=== PATIENT | female | born 1985 | race Caucasian/White ===

== ENCOUNTER 2019-08-23 10:02 | Outpatient (CLI) | payer OTHER, SELFPAY ==
--- NOTE | ~2019-08-23 | US_ITS ---
EXAMINATION: US OB /maternal detail DATE: 08/23/2019 11:55 INDICATION: survey TECHNIQUE: Multiple obstetric sonographic images performed. FINDINGS: No prior studies for comparison. There is a single living fetus in vertex presentation. The placenta is anterior without placenta pre via. Placenta is 2.4 cm from the cervix. Amniotic fluid volume is normal. cardiac activity and movement is noted with a heart rate of 138 beats per minute. The following anatomy was identified as normal: 4 chamber heart 3 vessel cord cord insertion kidneys urinary bladder stomach diaphragm ventricles cisterna magna cerebellum Spine not well visualized on axial images due to lie. The following biometric data were obtaine d: BPD: 43mm corresponds to gestational age 18 weeks 6 days. Head circumference: 172 mm corresponds to gestational age 19 weeks 6 days. Abdominal circumference: 141 mm corresponds to gestational age 19 weeks 3 days. Femur length: 29 mm corresponds to gestational age 19 weeks 0 days. Head circumference to abdominal circumference ratio: 1.22 (normal range for expected gestational age is 1.09-1.26). Estimated weight: 284 grams +/- 43 grams using Hadlock method. IMPRESSION: 1: Single living intrauterine with an estimated gestational age of 19weeks 2days by current ultrasound measurements, with an EDC of 01/15/2020 in vertex presentation. 2: survey limited for evaluation of the spine due to lie. The remainder of the survey is unremarkable. 3: Low-lying anterior placenta measuring 2.4 cm to the cervix. Reviewed, dictated and finalized at location A. IMPRESSION: 1: Single living intrauterine with an estimated gestational age of 19 weeks 2days by current ultrasound measurements, with an EDC of 01/15/2020 in gunner ute presentation. 2: survey limited for evaluation of the spine due to lie. The carlton rosita of the survey is unremarkable. 3: Low-lying anterior placenta measuring 2.4 cm to the cervix.
== END 2019-08-23 10:03 | disposition home or self-care (01) ==
PROVIDERS: Visit Provider Obstetrics & Gynecology
DX: Z34.90 Encounter for supervision of normal pregnancy, unspecified, unspecified trimester (principal); Z3A.19 19 weeks gestation of pregnancy; O44.42 Low lying placenta NOS or without hemorrhage, second trimester
CPT/HCPCS: 76805

== ENCOUNTER 2019-09-07 07:58 | Outpatient (CLI) | payer OTHER, SELFPAY ==
--- NOTE | ~2019-09-07 | US_ITS ---
EXAMINATION: US OB limited DATE: 09/07/2019 09:03 INDICATION: Nonvisualized anatomy on prior anatomic survey. Low lying placenta. TECHNIQUE: Real-time ultrasound of the pelvis was performed. COMPARISON: Ultrasound 08/23/2019 FINDINGS: There is a single fetus in breech presentation. The placenta is anterior, 3.5 cm from the cervix. Fe kelton heart rate is 154 beats per minute (bpm). The visualized portions of the spine are normal. The amniotic fluid volume is subjectively normal. IMPRESSION: 1. Single living fetus in breech presentation. 2. Normal placenta. 3. Normal visualized portions of the spine. Reviewed, dictated and finalized at location A.
== END 2019-09-07 07:59 | disposition home or self-care (01) ==
LOC: ANHIMG 08:00
PROVIDERS: Visit Provider Obstetrics & Gynecology
DX: Z36.2 Encounter for other antenatal screening follow-up (principal); O44.42 Low lying placenta NOS or without hemorrhage, second trimester
CPT/HCPCS: 76815

== ENCOUNTER → 2019-12-04 08:13 | Outpatient (CLI) | payer OTHER, SELFPAY ==
--- NOTE | ~2019-12-04 | US_ITS ---
EXAMINATION: US right upper quadrant DATE: 12/04/2019 08:38 INDICATION: Right upper quadrant abdominal pain. TECHNIQUE: Multiple grayscale and Doppler ultrasound images of the abdomen were obtained. COMPARISON: None FINDINGS: Abdominal aorta is normal in caliber. Inferior vena cava is normal. The visualized portions of the head and body of the pancreas are normal. The liver is normal without focal lesion. No liver surface nodularity. There is normal flow in main portal vein. The gallbladder is normal in size and c ontains gallstones. No gallbladder wall thickening or sonographic Jiménez sign. The common duct is nor mal and measures 3 mm. Right kidney is normal in size. IMPRESSION: 1. Cholelithiasis. No evidence of acute cholecystitis. Reviewed, dictated and finalized at location B.
== END ==
PROVIDERS: Visit Provider Obstetrics & Gynecology Gynecology
DX: K80.20 Calculus of gallbladder without cholecystitis without obstruction (principal)
CPT/HCPCS: 76705

== ENCOUNTER 2020-01-09 08:36 | Outpatient (CLI) | payer OTHER, SELFPAY ==
[2020-01-09 08:51] LABS: Hematocrit 35.3 % (37.0-47.0); Hemoglobin 12.1 g/dL (12.0-15.0); Mean Corpuscular HGB Conc 34.3 g/dl (32-36); Mean Corpuscular Hemoglobin 28.9 pg (26-34); Mean Corpuscular Volume 84.4 fl (80-100); Mean Platelet Volume 11.7 fl (7.4-10.4); Platelet Count Result 237 k/mm3 (150-375); Red Blood Count 4.18 M/mm3 (4.2-5.4); Red Cell Distribution Width 13.3 % (11.5-14.5); White Blood Count 9.4 K/mm3 (4.5-10.0)
[2020-01-10 10:52] LABS: Rapid Plasma Reagin Non-Reactive (NonReactive)
== END 2020-01-09 08:37 | disposition home or self-care (01) ==
LOC: ANHLAB 08:37
PROVIDERS: Visit Provider Obstetrics & Gynecology
DX: Z34.93 Encounter for supervision of normal pregnancy, unspecified, third trimester (principal); Z3A.00 Weeks of gestation of pregnancy not specified
CPT/HCPCS: 36415; 85027; 86592; 86850; 86900; 86901

== ENCOUNTER 2020-01-10 05:31 | Inpatient (IN) | payer OTHER, SELFPAY ==
[2020-01-10] VITALS (55 sets, daily range): BP systolic 88–130; BP diastolic 45–82; PULSE 57–96; RESP 14–18; TEMP 36.3–36.7; O2SAT 96–100; BMI 37.8
--- NOTE | 2020-01-10 05:31 | LDADM ---
This patient, Lee Ann Hines, was admitted to Labor/Delivery/Recovery 120 on 01/10/20 at 05:31. Plans for labor, pain management and were discussed with patient. Patient/family oriented to hospital policies and general routines including ID bracelet, bed and alarms, visiting hours, pain management, procedures, bathroom and other care routines, personal items, smoking policy, room service/diet and guest tray routines, infant security routines, and visiting hours. Patient/Family are encouraged to report perceived risks to care and to ask questions if they do not understand what they are told or what they should do. See OBIX for further documentation.
[2020-01-10] MEDS: LACTATED RINGERS 1,000 ML 125 ML IV CONT ×2 (05:59→06:43)
--- NOTE | 2020-01-10 06:44 | WPDANESEPPF ---
Anes - Initial Pre Proc Eval Procedure: Operation Date: 01/10/20 07:30 Proposed Procedures p Repeat Section - Aj Cornell MD Date/Time: 01/10/20 06:44 Surgeon: Aj Cornell MD Pre Op Diagnosis: C/S Patient Data Age: 34 Gender: F Height: 1.63 m Weight: 100 kg Last Vital Signs Temp 36.7 C 01/10/20 06:35 Pulse 80 01/10/20 06:31 BP 118/76 01/10/20 06:31 Allergies Allergy/AdvReac Type Severity Reaction Status Date / Time No Known Allergies Allergy Verified 12/18/19 12:30 Home Medications Medication Instructions Recorded Confirmed Type PNV cmb#95-ferrous fumarate-FA 1 tablet PO DAILY 12/18/19 12/18/19 History [] levothyroxine 150 mcg PO DAILY 12/18/19 12/18/19 History Patient hx anesthesia problems: none Family hx anesthesia problems: none PMFSH Past Medical History Medical History (Updated 01/08/20 @ 16:06 by Ronald Godinez DO) History of Graves' disease Surgical History Surgical History (Updated 01/08/20 @ 16:06 by Ronald Godinez DO) History of received blood patch s/p c section for PDPH History of thyroidectomy Social History Social History Smoking status: Never smoker Second hand tobacco smoke exposure: No Substance use: never Gender identity (if verbalized by the patient): Female Spiritual care concerns: No Anes - Eval Final PreProcedure Day of Procedure 01/10/20 06:44 Patient weight: obese Heart: regular rate and rhythm Lungs: clear to auscultation and normal air movement Airway: Mallampati scale class II Neurological: alert and oriented Last oral intake: >/= 8 hours ASA classification: III Emergent: no Anesthetic plan: proceed Anesthesia type and monitoring: regional spinal and standard monitoring Informed Consent: The patient's anesthetic plan and its attendant risks and benefits were discussed with the patient/family/POA. Questions were solicited and answers provided to the satisfaction of the patient/family/POA.
--- NOTE | 2020-01-10 07:08 | PM.IMHP ---
H&P: HPI History of Present Illness Date/Time: 01/10/20 07:08 Chief complaint: C/S Narrative: Lee Ann Hines is a 34 year old female @ 39 weeks presgnancy complicated by gallstones, MO, hypothyroid and prior csection. Patient reports movement no leakage of fluid. Patient desires repeat csection. PENDING SALE TO [facility] Past Medical History Medical History History of Graves' disease Surgical History Surgical History (Updated 01/10/20 @ 07:13 by Aj Cornell MD) H/O: History of received blood patch s/p c section for PDPH History of thyroidectomy Family History Family History Other No pertinent family history Social History Social History Smoking status: Never smoker Second hand tobacco smoke exposure: No Substance use: never Gender identity (if verbalized by the patient): Female Spiritual care concerns: No Meds Home Medications and Allergies Home Medications Medication Instructions Recorded Confirmed Type PNV cmb#95-ferrous fumarate-FA 1 tablet PO DAILY 12/18/19 12/18/19 History [] levothyroxine 150 mcg PO DAILY 12/18/19 12/18/19 History Allergies Allergy/AdvReac Type Severity Reaction Status Date / Time No Known Allergies Allergy Verified 12/18/19 12:30 Vital Signs Vital Signs - 24 hr 01/10/20 06:20 01/10/20 06:31 01/10/20 06:35 Temperature 36.7 C Pulse Rate 77 80 Blood Pressure 103/63 118/76 Exam Const: General: no acute distress Resp: Auscultation: clear to auscultation bilaterally Cardio: Rate: regular rate GI: GI Palp: Yes Soft to palpation Other: Gravid fundal height 41 cm Assessment and Plan Assessment and plan (1) Gallstones: Code(s): K80.20 - Calculus of gallbladder without cholecystitis without obstruction Status: Acute Assessment and Plan: follow up with GI/surgeon (2) H/O: : Code(s): Z98.891 - History of uterine scar from previous surgery Status: Acute Assessment and Plan: Scheduled for a repeat csection. Risk and benefits reviewed in detail including bleeding, infection, trauma, and anesthesia. Patient agrees to proceed with repeat csection.
[2020-01-10] MEDS: ceFAZolin 2 GM/D5W 50 ML 2 GM/50 ML BAG IVPB (07:17)
[2020-01-10 07:41] LABS: Rubella IgG Antibody 25.7 IU/ML
[2020-01-10] MEDS: OXYTOCIN 30 UNITS/NS 500 ML 30 UNITS/500 ML BAG 125 UNITS IV CONT (08:55)
[2020-01-10] MEDS: KETOROLAC 30 MG/ML VIAL (*BKC) IV PUSH ×2 (09:17→23:30)
--- NOTE | 2020-01-10 10:20 | PC.NURSE ---
Patient transferred to post room #291 per stretcher from labor and delivery. Support person present. Oriented to unit, room, information board, rooming in, admission packet and security measures. Patient verbalizes understanding.
[2020-01-10] MEDS: ONDANSETRON INJ 4 MG/2 ML VIAL IV PUSH ×2 (11:19→18:35)
[2020-01-10] MEDS: DEXTROSE 5%/0.45% SOD CHL 1,000 ML 125 ML IV CONT (13:23)
[2020-01-10] MEDS: METOCLOPRAMIDE HCL INJ 10 MG/2 ML VIAL (13:25)
[2020-01-10] MEDS: METOCLOPRAMIDE HCL INJ 10 MG/2 ML VIAL IV PUSH (23:30)
[2020-01-11 04:15] VITALS: BP 91/59; PULSE 62; RESP 16; TEMP 36.7
[2020-01-11 06:08] LABS: Basophils Percent Auto 0.3 % (0.2-1.2); Eosinophils Absolute Auto 0.1 K/mm3 (0-0.3); Eosinophils Percent Auto 0.6 % (0-4.4); Hematocrit 32.7 % (37.0-47.0); Hemoglobin 10.7 g/dL (12.0-15.0); Immature Granulocyte Absolute 0.06 K/mm3 (0.00-0.031); Immature Granulocyte Percent A 0.5 % (0-0.5); Lymphocytes Absolute Auto 1.86 K/mm3 (0.9-3.2); Lymphocytes Percent Auto 15.9 % (18.3-44.2); Mean Corpuscular HGB Conc 32.7 g/dl (32-36); Mean Corpuscular Volume 88.6 fl (80-100); Mean Platelet Volume 12.4 fl (7.4-10.4); Monocytes Absolute Auto 0.8 K/mm3 (0.1-0.6); Neutrophils Absolute Auto 8.8 K/mm3 (1.3-6.7); Neutrophils Percent Auto 75.7 % (45.5-73.1); Platelet Count Result 214 k/mm3 (150-375); Red Blood Count 3.69 M/mm3 (4.2-5.4); Red Cell Distribution Width 13.7 % (11.5-14.5); White Blood Count 11.7 K/mm3 (4.5-10.0)
[2020-01-11 07:25] VITALS: BP 103/60; PULSE 76; RESP 18; TEMP 37.4; O2SAT 97
[2020-01-11] MEDS: HYDROcodone/acetaminophen (*CRX) 5-325 MG TABLET 1 TAB PO ×4 (09:11→23:00)
[2020-01-11] MEDS: IBUPROFEN 600 MG TABLET PO ×3 (09:12→23:00)
[2020-01-11] MEDS: DOCUSATE SODIUM 100 MG CAPSULE PO ×2 (09:12→16:49)
--- NOTE | 2020-01-11 09:41 | PM.PROC ---
Procedure Note - Detailed Date of procedure: 01/11/20 Pre-op diagnosis: C/S Post-op diagnosis: same Procedure performed: repeat c section Description of procedure: The patient was taken to the operating room with IV running. She was prepared and draped in a normal sterile fashion after a spinal anesthesia was performed. The patient was taped placed in the leftward tilt. A Pfannenstiel skin incision was made with scalpel carried down to the underlying layer of fascia. This fascial incision was excised in the midline and extended bilaterally with De Jesus scissors. The anterior portion of the fascia was grasped with Ailyn clamps elevated and dissected off the rectus muscles. The inferior aspect of the incision was grasped with clamps elevated dissected off the rectus muscles. The rectus muscles were in the midline peritoneum was entered bluntly. And the lower uterine segment was noted a bladder blade was inserted sickle uterine peritoneum was grasped with peons and sharply Metzenbaum scissors bladder blade was created. A transverse incision was made with the scalpel this incision was then extended bluntly. The head was deliveredl. The remainder of the fetus delivered cord was clamped and cut and the fetus was handed off to the waiting nurse. Cord blood was obtained for glasses were obtained. The placenta was delivered spontaneously. The uterus is exteriorized and cleared of all clots and debris. The uterine incision was then closed with 0 Monocryl in a running locked fashion. Second layer the same suture was used to imbricate this incision. Uterus was returned to the abdomen the gutters were irrigated and cleared of all clot and debris uterine incision was hemostatic. The muscles were examined hemostasis noted the fascia was closed with 0 Vicryl in a running fashion the subcutaneous tissue was irrigated and closed with 3 0 plain gut and the skin was closed with 4-0 Vicryl on a Jaswinder needle sponge lap and needle counts were correct x2 patient tolerated procedure well patient received 2 g Ancef prior to skin incision. Anesthesia: spinal Surgeon: Aj Cornell MD Drains: Yes Packing: No Pathology: none sent Complications: None Condition: stable Disposition: observation Findings: grossly normal tubes and ovaries.
--- NOTE | 2020-01-11 10:48 | WPDANLDPN2 ---
Anes-Prog Note L&D Date/Time: 01/11/20 10:48 Comfortable throughout: section Neuraxial method: spinal Epidural/Spinal procedure site: clean & non-tender Neuro status: Neuro function grossly intact. Cardiovascular status: normal Respiratory status: normal Airway patency: baseline Mental status: baseline Post-Op hydration status: normal Vital Signs: Last Vital Signs Temp 37.4 C 01/11/20 07:25 Pulse 76 01/11/20 07:25 Resp 18 01/11/20 07:25 BP 103/60 01/11/20 07:25 Pulse Ox 97 01/11/20 07:25 Pain score (VAS): 05/05 I/O: Intake & Output 01/10/20 01/11/20 01/11/20 23:59 07:59 15:59 Intake Total 100 700 Output Total 925 300 Balance -825 400 Post-procedural complaints: nausea moderate, treatment effective and vomiting (resolved today) Patient feedback: Patient satisfied with anesthetic care.
--- NOTE | 2020-01-11 10:48 | WPDANLDNPN2 ---
Anes-Prog Note L&D-Neuraxial Date/Time: 01/11/20 10:48 Neuraxial medications: intrathecal PF morphine Opiod-related complaints: nausea moderate, treatment effective Patient feedback: Patient satisfied with post-operative pain management.
--- NOTE | 2020-01-11 12:05 | PC.NURSE ---
Consulted with patient, mother is attempting to breast. Mother reports has used the nipple shield during the night. does not open wide to allow deep latch. Discussed nipple shield precautions and possible complications. Instructions given on application and cleaning of shield. Patient able to return demonstration on proper application of shield. Discussed the need for regular pumping if continues to nurse with the shield. Patient verbalizes understanding. Reviewed feeding cues, frequencies, duration of feedings, feeding elimination flow sheet, and signs of adequate intake. Demonstrated stimulation techniques to wake infant for feeding. Assisted with to breast with nipple shield. Reviewed positioning/alignment in cross cradle, holding breast in U hold and guided asymmetrical latch on. was able to latch correctly. Infant nursed sleepily with bursts of rhythmic draws and occasional swallowing noted. Reviewed signs of a correct latch, effective nursing and suck swallow ratio. Infant was able to maintain latch without discomfort to mother. Nipple care reviewed. Suggested mother stimulate while feeding to keep infant awake and nursing effectively for increased intake and to assist with maintaining deep latch. Demonstrated how to adjust latch more deeply while feeding. Discussed duration from last feeding, advised mother RN will due a blood glucose on after feeding. Instructed mother to call out for RN assistance if she is unable to latch for feeding or she has discomfort with nursing. Instructed feeding should be initiated three hours from start of last feeding or if feeding cues are noted before. Mother voiced understanding of information shared.
--- NOTE | 2020-01-11 13:08 | PM.OBPRVD ---
OB - Delivery Note Procedure Delivery date: 01/10/20 Procedure: Procedures Operation Date: 01/10/20 07:30 Actual Procedures Side Surgeon p Repeat Section Not Applicable Aj Cornell MD events: Previous Intrapartal events: None Route of delivery: Estimated blood loss (mL): 145 Anesthesia type: Spinal Disposition: observation [place] Baby Date of : 01/10/20 Time of : 07:40 Weeks of gestation at delivery: 39 gender: Male Weight (pounds): 7 Weight (ounces): 4 presentation: vertex Placenta delivery description: Manual Removal cord vessel description: 3 Vessels and Clamped/Cut score one minute: 8 score five minutes: 9
--- NOTE | 2020-01-11 15:40 | PC.NURSE ---
Breast pump provided due to nipple shield use/ineffective feeding. Instructions given on breast pump care and usage, pumping schedule, nipple care, and collection and storage of breast milk. Encouraged [id number], breast massage and manual expression to stimulate supply. Assessed patient for correct flange size, placement and draw. Patient verbalizes and demonstrates understanding of instructions.
--- NOTE | 2020-01-11 17:07 | P.PNOB_ITS ---
OB - PN: Subj Subjective Date/time seen: 01/11/20 17:07 no comlaints today pain controlled OB - PN: Obj Data Labs CBC & Chem 7: 01/11/20 04:10 Labs: Laboratory Results - last 24 hr 01/11/20 04:10 WBC 11.7 H RBC 3.69 L Hgb 10.7 L Hct 32.7 L MCV 88.6 MCH 29.0 MCHC 32.7 RDW 13.7 Plt Count 214 MPV 12.4 H Immature Gran % (Auto) 0.5 Neut % (Auto) 75.7 H Lymph % (Auto) 15.9 L [place] % (Auto) 7.0 Eos % (Auto) 0.6 Baso % (Auto) 0.3 Lymph # (Auto) 1.86 [place] # (Auto) 0.8 H Eos # (Auto) 0.1 Baso # (Auto) 0.0 Abs Immat Gran (auto) 0.06 H Absolute Neuts (auto) 8.8 H Absolute Nucleated RBC 0.0 Nucleated RBC % 0.0 OB - PN A/P Assessment and Plan (1) H/O: : Code(s): Z98.891 - History of uterine scar from previous surgery Status: Acute Assessment and Plan: continue with pp care. Time Spent With Patient Time: Total time spent is greater than 50% in coordination of care (as documented) at patient's floor/unit and/or counseling patient: Exam GI: Other: incision c/d/i ff below umbilicus
[2020-01-11 19:14] VITALS: BP 100/54; PULSE 65; RESP 16; TEMP 36.9
[2020-01-12] MEDS: IBUPROFEN 600 MG TABLET PO (04:37)
[2020-01-12] MEDS: HYDROcodone/acetaminophen (*CRX) 5-325 MG TABLET 1 TAB PO ×2 (04:37→08:40)
[2020-01-12] MEDS: MULTIVIT/MIN/PREN/FOL AC/IRON TABLET 1 TAB PO (08:40)
[2020-01-12] MEDS: DOCUSATE SODIUM 100 MG CAPSULE PO (08:40)
[2020-01-12 09:05] VITALS: BP 108/61; PULSE 67; RESP 18; TEMP 37.3; O2SAT 99
--- NOTE | 2020-01-12 10:30 | PC.NURSE ---
Patient instructed on viewing the discharge video Mother & Baby Care, The First Two Weeks . Patient was given the opportunity and encouraged to ask questions. Patient verbalized understanding of information shared and has been given the mother/baby guide for home reference.
--- NOTE | 2020-01-12 10:43 | PM.OBPNVD ---
OB - PN: Subj Subjective Date/time seen: 01/12/20 10:43 Doing well no complaints desires home today pain controlled. OB - PN: Obj Data Labs CBC & Chem 7: 01/11/20 04:10 OB - PN A/P Assessment and Plan (1) H/O: : Code(s): Z98.891 - History of uterine scar from previous surgery Status: Acute Assessment and Plan: d/c home. Continue with PRN pain medications f/u in office in 1 week. Time Spent With Patient Time: Total time spent is greater than 50% in coordination of care (as documented) at patient's floor/unit and/or counseling patient: Exam Const: General: no acute distress GI: Other: incision c/d /i ff below umbilicus
--- NOTE | 2020-01-26 11:48 | PM.OBDSVD ---
DS: Admitting Diagnosis Admitting Diagnosis Admitting Diagnosis: C/S DS: Discharge Diagnosis Discharge Diagnosis (1) H/O: : Code(s): Z98.891 - History of uterine scar from previous surgery Status: Acute Assessment and Plan: s/p repeat csection OB - DS: Summary OB Procedures : Ultrasound OB Procedures Intrapartum: OB Procedures: : None Peripartum Data Procedures: Procedures Operation Date: 01/10/20 07:30 Actual Procedures Side Surgeon p Repeat Section Not Applicable Aj Cornell MD Time Spent with Patient Time attestation: Total time spent providing and/or coordinating discharge services: Exam Const: General: no acute distress Cardio: Rate: regular rate GI: GI Palp: Yes Soft to palpation Discharge Plan Discharge Attending physician on discharge: Aj Cornell Consulting providers: Cayetano Weber ; Ronald Godinez Discharging Clinician: Aj Cornell Patient Disposition: Home, Self-Care Activity: may shower, no driving, follow weight bearing status and pelvic rest Diet: as tolerated Discharge Instructions: Education: Mom and Baby Guide and Preeclampsia Handout Given to: Mother Follow-Up: Call your delivering provider's office for an appointment to be seen in: 1 Week Mom and baby should come to the [facility] for the follow-up appointment. Appointment Date/Time: January 15, 2020 at 11:00 am What to expect at your follow-up visit: Physical Assessment Call [phone] if you are unable to keep your appointment time. BREAST CARE: * Wear a snug supportive bra. * For engorgement discomfort: Breast Feeding: * Apply warm moist washcloths * Express milk as needed to relieve engorgement * Wear loose clothing Bottle Feeding: * May apply ice packs * For sore nipples: * Identify correct latch-on * Apply warm moist washcloths before and after nursing * Air dry nipples after nursing * May apply Lansinoh cream to nipples ABDOMINAL INCISION: (if applicable) * Allow incision to air dry * Do NOT use lotions for powders on your incision * When showering, allow soap and water to run over the incision, but do not wash incision EPISIOTOMY/PERINEAL CARE: * Until bleeding stops, use your momo bottle after urinating * Change your pad frequently throughout the day * No tub baths until seen by your physician - You may shower ACTIVITY: * Rest as much as possible. * Do not exercise or lift anything heavier than your baby (such as laundry or other children.) * Avoid stairs or driving as much as possible. * Do not put anything into the vagina. No douching, tampons, or sexual activity until seen by physician. NOTIFY PHYSICIAN IF YOU HAVE ANY QUESTIONS OR IF ANY OF THE FOLLOWING SYMPTOMS OCCUR: * If your incision becomes red, swollen, or more painful than what you have experienced in the hospital. * If your vaginal bleeding becomes foul smelling. * If your vaginal bleeding becomes more heavy than a period or if your bleeding changes from pink to bright red. However, you may pass an occasional walnut-sized clot once or twice for the first week . * If you experience a sharp, shooting pain in you calves. * If you discover a hard, reddened area on your breast or if you experience flu-like symptoms. DIET: * Eat regular, well-balanced meals. * Drink plenty of fluids daily. If , drink to thirst. Stand Alone Forms: General Discharge Information Follow-up/Referrals: Aj Cornell MD [Physician] - Discharge Medications: New hydrocodone-acetaminophen 5-325 mg Tablet 1 tab PO Q3H PRN (Reason: Moderate Pain (4-6)) Qty: 30 RF: 0 docusate sodium 100 mg Capsule 100 mg PO BID Qty: 60 RF: 0 ibuprofen 600 mg Tablet 600 mg PO Q6H PRN (Reason: Cramping) Qty: 6
== END 2020-01-12 11:22 | disposition home or self-care (01) | DRG 788 ==
LOC: ANHLDR 05:38 → ANHOB2 11:07
PROVIDERS: Admitting Provider Obstetrics & Gynecology; Visit Provider Obstetrics & Gynecology
PROC: 10D00Z1 Extraction of Products of Conception, Low, Open Approach (ICD-10-PCS; CPT 59514; principal; 2020-01-10 07:30)
DX: O34.211 Maternal care for low transverse scar from previous cesarean delivery (principal); O99.62 Diseases of the digestive system complicating childbirth; K80.80 Other cholelithiasis without obstruction; O99.284 Endocrine, nutritional and metabolic diseases complicating childbirth; O99.214 Obesity complicating childbirth; E66.9 Obesity, unspecified; Z3A.39 39 weeks gestation of pregnancy; Z37.0 Single live birth
CPT/HCPCS: 36415; 85025; 86762; A9270; J0131; J0690; J1100; J1885; J2274; J2405; J2590; J2765; J7120